=== PATIENT | male | born 1965 | race Caucasian/White ===

== ENCOUNTER → 2025-01-26 | Outpatient (CLI) | payer OTHER, SELFPAY ==
[2025-01-26 18:27] LABS: Hematocrit 44.5 % (40-54); Hemoglobin 15.5 g/dL (13.0-16.5); Immature Granulocytes Count 0.010 X10^3/uL (0.0-0.0); Mean Corp Hgb Conc 34.8 g/dL (32-36); Mean Corpuscular Volume 91.2 fL (80-94); Mean Platelet Vol. 10.2 fl (6.2-12.0); NRBC Flagged by Analyzer 0 % (0-5); Platelet Count 239 K/mm3 (150-450); RBC Distribution Width CV 12.4 % (11.6-14.6); RBC Distribution Width SD 41.1 fl (35.1-43.9); Red Blood Count 4.88 M/mm3 (4.6-6.2); White Blood Count 6.3 K/mm3 (4.4-11.0)
[2025-01-26 18:32] LABS: AST(SGOT) 24 U/L (<=37); Alanine Aminotransfer ALT/SGPT 16 U/L (<=46); Albumin, Serum 4.2 g/dL (3.5-5.0); Alkaline Phosphatase 59 U/L (40-129); Anion Gap 13 (5-15); BUN 14 mg/dL (4-19); BUN/Creat Ratio 18.1 RATIO (10-20); Calcium,Total 9.4 mg/dL (7.6-11.0); Carbon Dioxide 22.8 mmol/L (21.0-32.0); Chloride 106 mmol/L (98-108); Cholesterol 147 mg/dL (<=200); Globulin 2.3 g/dL (2.2-4.2); Glucose 104 mg/dL (70-99); Low Density Lipoprotein Calc. 58 mg/dL; Potassium 3.8 mmol/L (3.3-5.1); Triglycerides 223 mg/dL; Very Low Density Lipoprotein 45 mg/dL (5-40); cholesterol:hdl ratio screen 3.30
[2025-01-26 18:43] LABS: PSA,Total- Diagnostic 1.91 ng/mL (0.00-4.00); Vitamin B12 514 pg/mL (180-914); Vitamin D,25 Hydroxy 33.7 ng/mL (30-100)
== END | disposition home or self-care (01) ==
LOC: MTLAB 16:40
PROVIDERS: PCP Nurse Practitioner Family; Referring Provider Nurse Practitioner Family; Visit Provider Nurse Practitioner Family
DX: Z00.01 Encounter for general adult medical examination with abnormal findings (principal); R53.83 Other fatigue; Z83.49 Family history of other endocrine, nutritional and metabolic diseases
CPT/HCPCS: 36415; 80053; 80061; 82306; 82607; 84153; 84439; 84443; 85025

== ENCOUNTER → 2025-03-20 | Outpatient (CLI) | payer OTHER, SELFPAY ==
--- NOTE | 2025-03-19 15:00 | RAD_ITS ---
EXAM: XR Orbits Foreign Body CLINICAL INDICATION: MRI FOREIGN BODY CLEARANCE TECHNIQUE: Frontal view(s) of the orbits. COMPARISON: No relevant prior studies available. FINDINGS: BONES/JOINTS: Unremarkable. No acute fracture. SINUSES: Unremarkable. No air-fluid levels. SOFT TISSUES: Unremarkable. No radiopaque foreign body. RAD/Orbits for Foreign Body IMPRESSION: Normal orbital x-rays. No radiopaque foreign body in either orbit. Reading Location: [id number]
--- OUTSIDE RECORDS SUMMARY | 2025-03-20 07:24 | XMS RPT_ITS | CCD ---
Author Organization [facility] Care Team Providers Care Training And Development Coordinator Name Role Phone Bar Fink MD Primary Care Provider EMMA SEYMOUR Attending Unavailable BAR FINK Primary Care Unavailable Han RIVER TESTER-C, Maria L Primary Care Provider [phone] Han RIVER TESTER-C, Maria L Attending Provider Han RIVER TESTER-C, Maria L Referring Provider Ronal RIVER TESTER-C, Sandra Attending Provider [phone] Ranjan MONDRAGON, Dr. Valladares Attending Provider Blaine Woodruff Attending Unavailable Han, Maria L Primary Care Unavailable Sandra Villeda Attending Unavailable Sandra Villeda Referring Unavailable Han, Maria L Primary Care Unavailable Han, Maria L Primary Care Unavailable Hna, Maria L Attending Unavailable Han, Maria L Referring Unavailable Han, Maria L Referring Unavailable Sandra Villeda Attending Unavailable Han, Maria L Primary Care Unavailable Allergies Allergy Classification Reported Allergen(s) Allergy Type Date of Onset Reaction(s) Facility (2 sources) buPROPion; Translations: [BUPROPION] Drug Allergy 09-01-2019 Other: See Comments [facility] Work Phone: Medications Current Medications Medication Drug Class(es) Dates Sig (Normalized) Sig (Original) [place] (Nk) (2 sources) Start: 03-05-2025 [place] (Nk) A ctive March 05, 2025 12:00am Completed/Discontinued Medications Medication Drug Class(es) Dates Sig (Normalized) Sig (Original) acetaminophen 325 mg / oxyCODONE hydrochloride 5 mg oral tablet (3 sources) Opioid Agonist Start: 10-24-2013 End: 03-05-2025 Oxycodone-Acetami nophen 1 TABLET tablet Discontinued 1 - 2 {tbl} PO EVERY 4 HOURS NEEDED as needed for Pain October 24, 2013 12:00am March 05, 2025 1:04pm amLODIPine 2.5 mg oral tablet (1 source) Dihydropyridine Calcium Channel Kemi Start: 01-03-2021 take 1 tablet by mouth once daily amLODIPine (NORVASC) 2.5 mg tablet Take 1 tablet by mouth once daily. 30 tablet 11 01/03/2021 Active Comment on above: Take 1 tablet by carley th once daily. tamsulosin hydrochloride 0.4 mg oral capsule (3 sources) alpha-Adrenergic Kemi Start: 10-24-2013 End: 03-05-2025 take 1 capsule by mouth once daily Tamsulosin 0.4 MG capsule Discontinued 0.4 mg PO DAILY 14 October 24, 2013 12:00am March 05, 2025 1:04pm Problems Active Problems Problem Classification Problem Date Documented Date Episodic/Chronic Other circulatory disease (1 source) Elevated blood-pressure reading without diagnosis of hypertension; Translations: [Elevated blood-pressure reading, without diagnosis of hypertension] Episodic Other connective tissue disease (2 sources) History of cervical spine fusion; Translations: [Arthrodesis status] 03-05-2025 Episodic Other nervous system disorders (1 source) Disease of spinal cord, unspecified; Translations: [Disease of spinal cord, unspecified] Onset: 03-17-2025 Chronic Residual codes; unclassified (2 sources) History of surgical procedure on cervical spine; Translations: [Other specified postprocedural states] 03-05-2025 Episodic Spondylosis; intervertebral disc disorders; other back problems (1 source) Dorsalgia, unspecified; Translations: [Dorsalgia, unspecified] Onset: 03-05-2025 Episodic Substance-related disorders (1 source) Smoker; Translations: [Nicotine dependence, unspecified, uncomplicated] Chronic Past or Other Problems Problem Classification Problem Date Documented Da te Episodic/Chronic Residual codes; unclassified (1 source) Tobacco user; Translations: [Tobacco use] Onset: 05-10-2014 05-10-2014 Episodic Results Test Name Value Interpretation Reference Range Facility L/S Spine Min 4 Viewson 08- L/S Spine Min 4 Views [facility] Imaging Services [address] [place] [address] L/S Spine Min 4 Views MR#: [id number] Acct: [id number] Name: TORREY FERGUSON Rep #: [id number] : 1965 M 59 From: Catracho mccarthy MD PCP: DARRELL Rodriguez Status: DEP AMB Study: L/S Spine Min 4 Views Date of Exam: 03/05/25 Exam# [id number] Ordering Dr: Lorena Gorman PROCEDURE: L/S SPINE MIN 4 VIEWS 03/05/2025 REASON FOR EXAM: BACK PAIN TECHNIQUE: L/S SPINE MIN 4 VIEWS COMPARISON: None FINDINGS: Curvature: Levoconvex scoliosis. Multilevel disc space narrowing and spondylosis. Facet joint osteoarthritis. RAD/L/S Spine Min 4 Views IMPRESSION: Levoconvex scoliosis. Multilevel disc space narrowing and spondylosis. Facet joint osteoarthritis. Reading Location: [facility] CC: DARRELL Short; VALENTINE Urias Snow Blower: Signed Normal [facility] Orthopedic Visit Reporton Orthopedic Visit Report [facility] [address] [place] [address] OFFICE VISIT Date of Service: 03/05/25 MR#: [id number] Acct: [id number] Name: TORREY FERGUSON Rep #: [id number] : 1965 Provider: DARRELL lowe Age/Sex: 59/M Location: [facility] Status: Signed Intake Vital Signs 10/24/13 12:57 03/05/25 13:03 Height 5 ft 7 in 5 ft 7 in Weight: 121 lb BMI 18.9 Intake Visit Reasons: LUMBAR SPINE Chief Complaint: lumabr spine Accompanied by: Self Is patient in pain?: Yes (lumbar spine) Pain scale (1-10): 5 Allergies No Known Allergies Allergy (Verified 03/05/25 13:03) Medications ???Medication ???Instructions ???Recorded ???Confirmed ???Type cyclobenzaprine 10 mg tablet 5 - 10 mg (0.5 - 1 x 10 mg) PO HS 03/05/25 03/05/25 Rx PRN muscle spasm or pain #30 tabs PFSH Medical History (Updated 03/05/25 @ 16:20 by DARRELL Perera) Skin cancer Surgical History H/O cervical spine surgery Hx of fusion of cervical spine Social History Smoking Status: Current every day smoker HPI LUMBAR SPINE Details: This documentation accurately reflects the service provided and the decisions made by me, DARRELL Perera 03/05/25 1300. Part of today???s visit was documented by Myrna Billingsley RN, acting as scribe. TORREY FERGUSON is a 59 year old M here today for lumbar spine pain. The low back pain is worse on the right side. The pain is constant and get worse throughout the day. The pain does occasionally radiate into his right buttocks. The pain is worse at night when he lays down and he has difficulty getting out of bed at times due to the pain. He can walk long distances, walking seems to help the pain. 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 He previously had two cervical surgeries, one where a plate was placed he does not recall exact details. The other was for a cervical fusion, these were both done in 1999 and 2000. He has not seen pain management. Agree with above. Hx scoliosis since childhood, last seen yrs ago (>10 yrs) Was told would eventually need surgery 20+ yrs ago of the lumbar spine Constant ache, very stiff in mornings. Stiff and annoying by end of work day. Occasional Ibuprofen, rarely takes edge off. Multiple topicals attempted with minimal short term relief, has tried multiple oral OTC, prescription NSAIDs, Tylenol with minimal improvement of symptoms. Patient does perform 1-2 times daily stretching and heat for sx control. Symptoms have been worsening most notably over the last 1 to 2 years. Patient states he does not acknowledge the pain and keeps doing what he has to do. Denies any loss of bowel or bladder control, no saddle anesthesia, no paresthesias reported. Denies any recent stumbling gait, trips or falls. ROS Const All systems reviewed are unremarkable except as noted in H and other (A O x 3, no apparent distress. No recent illness.) ENT Denies dizziness Card Denies chest pain, Denies dyspnea, Denies edema and Reports other (No palpitations) Resp Denies cough, Denies dyspnea and Reports other (No recent URI) GI Reports system reviewed and no additional complaints, except as documented, Denies nausea and Denies vomiting Musc Reports as per HPI, Reports abnormal gait, Reports back pain and Reports limited range of motion Neuro Yes abnormal gait and No dizziness Psych Reports system reviewed and no additional complaints, except as documented Connor/Lymph Denies easy bleeding and Denies easy bruising Ortho Exam General General: Yes no acute distress and Yes well groomed Neurologic: Yes alert and Yes oriented x3 Psychologic: Yes reasonable and appropriate Spine SPINE TESTING CERVICAL THORACIC LUMBAR Musculoskeletal Strength 0=absent - 5=normal Details: Skin is pink, warm, dry and intact. There is no bruising or swelling present. There is no pain with palpation over the vertebrae, positive tenderness and muscle tightness over the right mid to lower lumbar paraspinal region. Minimal aggravation with palpation of the SI joint. Range of motion of low back full with flexion and extension, limited with bilateral rotation and lateral leans. Positive straight leg raise Positive visible scoliosis formation with ambulation and on exam. Right leg strength mildly weaker than left. There is noted atrophy of the right leg compared to left leg. Knee and ankle DTRs within normal limits Distal motor or sensory intact with brisk cap refill at 2 seconds Supplemental Info Independent review of lumbar spine x-rays completed during today's visit. There is advanced scoliosis of the lumbar sp (more content not included)... Normal [facility] Absolute lymphocyte countOrd ered By: Maria L Short on 01-26-2025 Lymphocytes Auto (Unsp spec) [#/Vol] 2.01 10*3/uL 0.83-4.51 [facility] Absolute neutrophil countOrd ered By: Maria L Short on 01-26-2025 Neutrophils (Bld) [#/Vol] 3.5 10*3/uL 2.0-7.7 [facility] Anion gap in Serum or Plasma Ordered By: Maria L Short on 01-26-2025 Anion gap [Moles/Vol] 13 mmol/L 5-15 [facility] Automated lymphocyte count a s percentage of total leukocytesOrdered By: Maria Lnohemi Short on 01-26-2025 Lymphocytes/100 WBC Auto (Unsp spec) 31.9 % 19-41 [facility] BUN/creatinine ratioOrdered By: Maria Lnohemi Short on 01-26-2025 Urea nitrogen/Creatinine [Mass ratio] 18.1 mg/mg 10-20 [facility] Basophil percentageOrdered B y: Maria L Short on 01-26-2025 Basophils/100 WBC (Bld) 0.6 % 0-1 [facility] Bilirubin, totalOrdered By: [facility] on 01-26-2025 Bilirubin [Mass/Vol] 0.86 mg/dL 0.00-1.30 [facility] CBC W/Diff, Automatedon Absolute Lymph 2.01 X10 3/uL Normal 0.83-4.51 [facility] Comment on above: Performed By: #### L 503.0106, L500.4100, L501.9520, L506.1001, L506.0400, L500.4050, L100.0100, L501.9940 #### [facility] [address] [place], [address] Absolute Neut 3.5 X10 3/uL Normal 2.0-7.7 [facility] Comment on above: Performed By: #### L 503.0106, L500.4100, L501.9520, L506.1001, L506.0400, L500.4050, L100.0100, L501.9940 #### [facility] [address] [place], [address] Basophils/100 WBC (Bld) 0.6 % Normal 0-1 [facility] Comment on above: Performed By: #### L 503.0106, L500.4100, L501.9520, L506.1001, L506.0400, L500.4050, L100.0100, L501.9940 #### [facility] [address] [place], [address] Eosinophils/100 WBC (Bld) 3.0 % Normal 0-5 [facility] Comment on above: Performed By: #### L 503.0106, L500.4100, L501.9520, L506.1001, L506.0400, L500.4050, L100.0100, L501.9940 #### [facility] [address] [place], [address] Erythrocyte distribution width (RBC) [Ratio] 12.4 % Normal 11.6-14.6 [facility] Comment on above: Performed By: #### L 503.0106, L500.4100, L501.9520, L506.1001, L506.0400, L500.4050, L100.0100, L501.9940 #### [facility] [address] [place], [address] Hematocrit (Bld) [Volume fraction] 44.5 % Normal 40-54 [facility] Comment on above: Performed By: #### L 503.0106, L500.4100, L501.9520, L506.1001, L506.0400, L500.4050, L100.0100, L501.9940 #### [facility] [address] [facility], [address] Hemoglobin (Bld) [Mass/Vol] 15.5 g/dL Normal 13.0-16.5 [facility] Comment on above: Performed By: #### L 503.0106, L500.4100, L501.9520, L506.1001, L506.0400, L500.4050, L100.0100, L501.9940 #### [facility] [address] [place], [address] IG% 0.200 Normal 0.0-0.9 [facility] Comment on above: Result Comment: IG% - Immature Granulocytes (promyelocytes, myelocytes and metamyelocytes) > 1% indicates that a LEFT SHIFT is Present. Performed By: #### L 503.0106, L500.4100, L501.9520, L506.1001, L506.0400, L500.4050, L100.0100, L501.9940 #### [facility] [address] [place], [address] Lymphocytes/100 WBC (Bld) 31.9 % Normal 19-41 [facility] Comment on above: Performed By: #### L 503.0106, L500.4100, L501.9520, L506.1001, L506.0400, L500.4050, L100.0100, L501.9940 #### [facility] [address] [facility], [address] MCH (RBC) [Entitic mass] 31.8 pg Normal 27.0-32.0 [facility] Comment on above: Performed By: #### L 503.0106, L500.4100, L501.9520, L506.1001, L506.0400, L500.4050, L100.0100, L501.9940 #### [facility] [address] [facility], [address] MCHC (RBC) [Mass/Vol] 34.8 g/dL Normal 32-36 [facility] Comment on above: Performed By: #### L 503.0106, L500.4100, L501.9520, L506.1001, L506.0400, L500.4050, L100.0100, L501.9940 #### [facility] [address] [facility] [place], [address] MCV (RBC) [Entitic vol] 91.2 fL Normal 80-94 [facility] Comment on above: Performed By: #### L 503.0106, L500.4100, L501.9520, L506.1001, L506.0400, L500.4050, L100.0100, L501.9940 #### [facility] [address] [place], [address] Monocytes/100 WBC (Bld) 9.0 % Normal 0-10 [facility] Comment on above: Performed By: #### L 503.0106, L500.4100, L501.9520, L506.1001, L506.0400, L500.4050, L100.0100, L501.9940 #### [facility] [address] [place], [address] Neutrophils/100 WBC (Bld) 55.3 % Normal 47-70 [facility] Comment on above: Performed By: #### L 503.0106, L500.4100, L501.9520, L506.1001, L506.0400, L500.4050, L100.0100, L501.9940 #### [facility] [address] [place], [address] Nucleated RBC (Bld) [#/Vol] 0 10*3/uL Normal 0-5 [facility] Comment on above: Performed By: #### L 503.0106, L500.4100, L501.9520, L506.1001, L506.0400, L500.4050, L100.0100, L501.9940 #### [facility] [address] [place], [address] Platelet mean volume (Bld) [Entitic vol] 10.2 fL Normal 6.2-12.0 [facility] Comment on above: Performed By: #### L 503.0106, L500.4100, L501.9520, L506.1001, L506.0400, L500.4050, L100.0100, L501.9940 #### [facility] [address] [place], [address] Platelets (Bld) [#/Vol] 239 10*3/uL Normal 150-450 [facility] Comment on above: Performed By: #### L 503.0106, L500.4100, L501.9520, L506.1001, L506.0400, L500.4050, L100.0100, L501.9940 #### [facility] [address] [place], [address] RBC (Bld) [#/Vol] 4.88 10*6/uL Normal 4.6-6.2 [facility] [place] [facility] Comment on above: Performed By: #### L 503.0106, L500.4100, L501.9520, L506.1001, L506.0400, L500.4050, L100.0100, L501.9940 #### [facility] [address] [place], [address] RDW SD 41.1 fl Normal 35.1-43.9 [facility] Comment on above: Performed By: #### L 503.0106, L500.4100, L501.9520, L506.1001, L506.0400, L500.4050, L100.0100, L501.9940 #### [facility] [address] [place], [address] WBC (Bld) [#/Vol] 6.3 10*3/uL Normal 4.4-11.0 [facility] Comment on above: Performed By: #### L 503.0106, L500.4100, L501.9520, L506.1001, L506.0400, L500.4050, L100.0100, L501.9940 #### [facility] [address] [place], [address] Calculated very low density lipoprotein (VLDL) cholesterol measurementOrdered By: Maria L Short on 01-26-2025 Calculated very low density lipoprotein (VLDL) cholesterol measurement 45 mg/dL High 5-40 [facility] Carbon dioxide, total [Moles /volume] in Central venous bloodOrdered By: Maria L Short on 01-26-2025 CO2 [Moles/Vol] 22.8 mmol/L 21.0-32.0 [facility] Chloride assayOrdered By: Ra izabella Short on 01-26-2025 Chloride [Moles/Vol] 106 mmol/L 98-108 [facility] Comprehensive Metabolic Prof ilon 01-26-2025 Albumin [Mass/Vol] 4.2 g/dL Normal 3.5-5.0 [facility] Comment on above: Performed By: #### L 503.0106, L500.4100, L501.9520, L506.1001, L506.0400, L500.4050, L100.0100, L501.9940 #### [facility] [address] [place], [address] Albumin/Globulin [Mass ratio] 1.8 {ratio} Normal 0.9-2.4 [facility] Comment on above: Performed By: #### L 503.0106, L500.4100, L501.9520, L506.1001, L506.0400, L500.4050, L100.0100, L501.9940 #### [facility] [address] [place], [address] ALK PHOS 59 U/L Normal 40-129 [facility] Comment on above: Performed By: #### L 503.0106, L500.4100, L501.9520, L506.1001, L506.0400, L500.4050, L100.0100, L501.9940 #### [facility] [address] [place], [address] ALT [Catalytic activity/Vol] 16 U/L Normal <=46 [facility] Comment on above: Performed By: #### L 503.0106, L500.4100, L501.9520, L506.1001, L506.0400, L500.4050, L100.0100, L501.9940 #### [facility] [address] [place], [address] AST [Catalytic activity/Vol] 24 U/L Normal <=37 [facility] Comment on above: Performed By: #### L 503.0106, L500.4100, L501.9520, L506.1001, L506.0400, L500.4050, L100.0100, L501.9940 #### [facility] [address] [place], [address] Bilirubin [Mass/Vol] 0.86 mg/dL Normal 0.00-1.30 [facility] Comment on above: Performed By: #### L 503.0106, L500.4100, L501.9520, L506.1001, L506.0400, L500.4050, L100.0100, L501.9940 #### [facility] [address] [place], [address] BUN/CRE 18.1 RATIO Normal 10-20 [facility] Comment on above: Performed By: #### L 503.0106, L500.4100, L501.9520, L506.1001, L506.0400, L500.4050, L100.0100, L501.9940 #### [facility] [address] [place], [address] Calcium [Mass/Vol] 9.4 mg/dL Normal 7.6-11.0 [facility] Comment on above: Performed By: #### L 503.0106, L500.4100, L501.9520, L506.1001, L506.0400, L500.4050, L100.0100, L501.9940 #### [facility] [address] [place], [address] Chloride [Moles/Vol] 106 mmol/L Normal 98-108 [facility] Comment on above: Performed By: #### L 503.0106, L500.4100, L501.9520, L506.1001, L506.0400, L500.4050, L100.0100, L501.9940 #### [facility] [address] [place], [address] CO2 [Moles/Vol] 22.8 mmol/L Normal 21.0-32.0 [facility] Comment on above: Performed By: #### L 503.0106, L500.4100, L501.9520, L506.1001, L506.0400, L500.4050, L100.0100, L501.9940 #### [facility] [address] [place], [place], [id number] Creatinine [Mass/Vol] 0.79 mg/dL Normal 0.70-1.20 [facility] Comment on above: Performed By: #### L 503.0106, L500.4100, L501.9520, L506.1001, L506.0400, L500.4050, L100.0100, L501.9940 #### [facility] [address] [place], [address] GAP 13 Normal 5-15 [facility] Comment on above: Performed By: #### L 503.0106, L500.4100, L501.9520, L506.1001, L506.0400, L500.4050, L100.0100, L501.9940 #### [facility] [address] [place], [place], [id number] ([address] GFR/1.73 sq M.predicted among non-blacks MDRD (S/P/Bld) [Vol rate/Area] 102 mL/min/{1.73_m2} Normal >60 [facility] Comment on above: Result Comment: mL/m in/1.73m2 CKD-EPI Creatinine Equation (2020) Performed By: #### L 503.0106, L500.4100, L501.9520, L506.1001, L506.0400, L500.4050, L100.0100, L501.9940 #### [facility] [address] [place], [address] Globulin (S) [Mass/Vol] 2.3 g/dL Normal 2.2-4.2 [facility] Comment on above: Performed By: #### L 503.0106, L500.4100, L501.9520, L506.1001, L506.0400, L500.4050, L100.0100, L501.9940 #### [facility] [address] [place], [address] Glucose [Mass/Vol] 104 mg/dL High 70-99 [facility] Comment on above: Performed By: #### L 503.0106, L500.4100, L501.9520, L506.1001, L506.0400, L500.4050, L100.0100, L501.9940 #### [facility] [address] [place], [address] Potassium [Moles/Vol] 3.8 mmol/L Normal 3.3-5.1 [facility] Comment on above: Performed By: #### L 503.0106, L500.4100, L501.9520, L506.1001, L506.0400, L500.4050, L100.0100, L501.9940 #### [facility] [address] [place], [address] Sodium [Moles/Vol] 141 mmol/L Normal 133-145 [facility] Comment on above: Performed By: #### L 503.0106, L500.4100, L501.9520, L506.1001, L506.0400, L500.4050, L100.0100, L501.9940 #### [facility] [address] [place], [place], [address] T PROT 6.5 g/dL Normal 5.9-8.4 [facility] Comment on above: Performed By: #### L 503.0106, L500.4100, L501.9520, L506.1001, L506.0400, L500.4050, L100.0100, L501.9940 #### [facility] [address] [place], [address] Urea nitrogen [Mass/Vol] 14 mg/dL Normal 4-19 [facility] Comment on above: Performed By: #### L 503.0106, L500.4100, L501.9520, L506.1001, L506.0400, L500.4050, L100.0100, L501.9940 #### [facility] [address] [facility], [address] Eosinophil percentageOrdered By: Maria L Short on 01-26-2025 Eosinophils/100 WBC (Bld) 3.0 % 0-5 [facility] Erythrocyte distribution wid th ratioOrdered By: [place] Han on 01-26-2025 Erythrocyte distribution width (RBC) [Ratio] 12.4 % 11.6-14.6 [facility] Erythrocyte distribution wid th standard deviationOrdered By: [place] Han on 01-26-2025 Erythrocyte distribution width (RBC) [Ratio] 41.1 fl 35.1-43.9 [facility] Glomerular filtration rate ( GFR) estimation/1.73 sq m using serum, plasma, or whole bOrdered By: Maria L Short on 01-26-2025 GFR/1.73 sq M.predicted among non-blacks MDRD (S/P/Bld) [Vol rate/Area] 102 mL/min/{1.73_m2} >60 [facility] Comment on above: mL/min/1.73m2 CKD-EP I Creatinine Equation (2020) Hematocrit Auto (Bld) [Volum e fraction]Ordered By: Maria L Short on 01-26-2025 Hematocrit (Bld) [Volume fraction] 44.5 % 40-54 [facility] Hemoglobin measurementOrdere d By: Maria L Short on 01-26-2025 Hemoglobin (Bld) [Mass/Vol] 15.5 g/dL 13.0-16.5 [facility] Immature granulocytes/100 WB C Auto (Bld)Ordered By: Maria L Short on 01-26-2025 Immature granulocytes/100 WBC (Bld) 0.200 % 0.0-0.9 [facility] Comment on above: IG% - Immature Granu locytes (promyelocytes, myelocytes and metamyelocytes) > 1% indicates that a LEFT SHIFT is Present. LDL calc ser/plasOrdered By: Maria L Short on 01-26-2025 Cholesterol in LDL [Mass/Vol] 58 mg/dL [facility] Comment on above: Hxwrdbshot=958-189 m g/dL & Higher Gxif=541 mg/dL or greater Laboratory - Chemistry and C hemistry - challengeOrdered By: Maria L Short on 01-26-2025 AST [Catalytic activity/Vol] 24 U/L <38 [facility] Lipid Profileon 01-26-2025 CHOL:HDL 3.30 Normal [facility] Comment on above: Performed By: #### L 503.0106, L500.4100, L501.9520, L506.1001, L506.0400, L500.4050, L100.0100, L501.9940 #### [facility] [address] [place], [place], [id number] Cholesterol [Mass/Vol] 147 mg/dL Normal <=200 [facility] [facility] Comment on above: Result Comment: Chol esterol level, Desirable <200 mg/dL Borderline high cholesterol 200-239 mg/dL High cholesterol >=240 mg/dL Recommendations of the NCEP Adult Treatment Panel for the following risk-cutoff thresholds for the [place] population. Performed By: #### L 503.0106, L500.4100, L501.9520, L506.1001, L506.0400, L500.4050, L100.0100, L501.9940 #### [facility] [address] [place], [address] Cholesterol in HDL [Mass/Vol] 45 mg/dL Normal [facility] Comment on above: Result Comment: Iman onal Cholesterol Education Program (NCEP) guidelines: <40 mg/dL: Low HDL-cholesterol (major risk factor for CHD) >= 60 mg/dL: High HDL-cholesterol (negative risk factor for CHD) HDL-cholesterol is affected by a number of factors, e.g. smoking, exercise, hormones, sex and age. Performed By: #### L 503.0106, L500.4100, L501.9520, L506.1001, L506.0400, L500.4050, L100.0100, L501.9940 #### [facility] [address] [place], [address] Cholesterol in LDL [Mass/Vol] 58 mg/dL Normal [facility] Comment on above: Result Comment: Bord bovyzl=920-817 mg/dL Higher Ydck=377 mg/dL or greater Performed By: #### L 503.0106, L500.4100, L501.9520, L506.1001, L506.0400, L500.4050, L100.0100, L501.9940 #### [facility] [address] [place], [address] Cholesterol in VLDL [Mass/Vol] 45 mg/dL High 5-40 [facility] Comment on above: Performed By: #### L 503.0106, L500.4100, L501.9520, L506.1001, L506.0400, L500.4050, L100.0100, L501.9940 #### [facility] [address] [place], [address] Triglyceride [Mass/Vol] 223 mg/dL High [facility] Comment on above: Result Comment: The drugs N-Acetylcysteine and Metamizole may falsely depress this assay. Normal range: <150 mg/dL Borderline High: 150-199 mg/dL High: 200-499 mg/dL Very High: >500 mg/dL Performed By: #### L 503.0106, L500.4100, L501.9520, L506.1001, L506.0400, L500.4050, L100.0100, L501.9940 #### [facility] [address] [place], [address] MCV (mean corpuscular volume ) determinationOrdered By: [place] Han on 01-26-2025 MCV (RBC) [Entitic vol] 91.2 fL 80-94 [facility] Mean corpuscular hemoglobin (MCH) determinationOrdered By: [facility] 01-26-2025 MCH (RBC) [Entitic mass] 31.8 pg 27.0-32.0 [facility] Mean corpuscular hemoglobin concentration (MCHC) determinationOrdered By: [facility] on 01-26-2025 MCHC (RBC) [Mass/Vol] 34.8 g/dL 32-36 [facility] Mean platelet volume determi nationOrdered By: [facility] on 01-26-2025 Platelet mean volume (Bld) [Entitic vol] 10.2 fL 6.2-12.0 [facility] Monocyte percentageOrdered B y: [facility] on 01-26-2025 Monocytes/100 WBC (Bld) 9.0 % 0-10 [facility] Neutrophil percentageOrdered By: [facility] on 01-26-2025 Neutrophils/100 WBC (Bld) 55.3 % 47-70 [facility] Nucleated red blood cell per centageOrdered By: [facility] on 01-26-2025 Nucleated RBC/100 WBC (Bld) [Ratio] 0 % 0-5 [facility] PSA,Total- Diagnosticon 07-0 PSA, DIAGNOSTIC 1.91 ng/mL Normal 0.00-4.00 [facility] Comment on above: Result Comment: This test was performed using the [employer] tPSA method. Measured values of a patient??sample can vary depending on the testing procedure used. PSA values determined on patient samples by different testing procedures cannot be used interchangeably. If there is a change in PSA assays while monitoring therapy, sequential testing should be performed to confirm baseline values. Performed By: #### L 503.0106, L500.4100, L501.9520, L506.1001, L506.0400, L500.4050, L100.0100, L501.9940 #### [facility] [place], [address] Platelet countOrdered By: Ra izabella Short on 01-26-2025 Platelets (Bld) [#/Vol] 239 10*3/uL 150-450 [facility] Potassium measurement (mass/ volume)Ordered By: Maria L Short on 01-26-2025 Potassium (Unsp spec) [Mass/Vol] 3.8 mmol/L 3.3-5.1 [facility] RBC Auto (Bld) [#/Vol]Ordere d By: Maria L Short on 01-26-2025 RBC (Bld) [#/Vol] 4.88 10*6/uL 4.6-6.2 [facility] Screening total cholesterol/ high density lipoprotein (HDL) cholesterol ratioOrdered By: Maria L Short on 01-26-2025 Cholesterol.total/Cholest elizabeth in HDL [Mass ratio] 3.30 {ratio} [facility] Serum creatinine measurement (mass/volume)Ordered By: Maria L Short on 01-26-2025 Creatinine [Mass/Vol] 0.79 mg/dL 0.70-1.20 [facility] Serum globulin measurementOr dered By: Maria L Short on 01-26-2025 Globulin (S) [Mass/Vol] 2.3 g/dL 2.2-4.2 [facility] Serum glucose measurement (m ass/volume)Ordered By: Maria L Short on 01-26-2025 Glucose [Mass/Vol] 104 mg/dL High 70-99 [facility] Serum or plasma alanine bowling otransferase (ALT) measurementOrdered By: Maria L Short on 01-26-2025 ALT [Catalytic activity/Vol] 16 U/L <47 [facility] Serum or plasma albumin susan urement (mass/volume)Ordered By: Maria L Short on 01-26-2025 Albumin [Mass/Vol] 4.2 g/dL 3.5-5.0 [facility] Serum or plasma albumin/glob ulin mass ratioOrdered By: Maria L Short on 01-26-2025 Albumin/Globulin [Mass ratio] 1.8 {ratio} 0.9-2.4 [facility] Serum or plasma alkaline wesley sphatase measurementOrdered By: Maria L Short on 01-26-2025 ALP [Catalytic activity/Vol] 59 U/L 40-129 [facility] Serum or plasma calcium susan urement (mass/volume)Ordered By: Maria L Short on 01-26-2025 Calcium [Mass/Vol] 9.4 mg/dL 7.6-11.0 [facility] Serum or plasma cholesterol in HDL measurement (mass/volume)Ordered By: Maria L Short on 01-26-2025 Cholesterol in HDL [Mass/Vol] 45 mg/dL >40 [facility] Comment on above: National Cholesterol Education Program (NCEP) guidelines:<40 mg/dL: Low HDL-cholesterol (major risk factor for CHD)>= 60 mg/dL: High HDL-cholesterol (negative risk factor for CHD)HDL-cholesterol is affected by a number of factors, e.g. smoking, exercise, hormones, sex and age. Serum or plasma cholesterol measurement (mass/volume)Ordered By: Maria L Short on 01-26-2025 Cholesterol [Mass/Vol] 147 mg/dL <201 [facility] Comment on above: Cholesterol level, D esirable <200 mg/dLBorderline high cholesterol 200-239 mg/dLHigh cholesterol >=240 mg/dLRecommendations of the NCEP Adult Treatment Panel for the following risk-cutoff thresholds for the [place] population. Serum or plasma urea nitroge n measurement (mass/volume)Ordered By: Maria L Short on 01-26-2025 Urea nitrogen [Mass/Vol] 14 mg/dL 4-19 [facility] Sodium levelOrdered By: Jill Short on 01-26-2025 Sodium [Moles/Vol] 141 mmol/L 133-145 [facility] T4 Free Directon 01-26-2025 T4 FREE DIRECT 1.10 ng/dL Normal 0.76-1.46 [facility] Comment on above: Performed By: #### L 503.0106, L500.4100, L501.9520, L506.1001, L506.0400, L500.4050, L100.0100, L501.9940 #### [facility] [address] [place], [place], [id number] T4 freeOrdered By: Maria L brown on 01-26-2025 Free T4 [Mass/Vol] 1.10 ng/dL 0.76-1.46 [facility] TSH DL <= 0.005 mIU/L QnOrde red By: Maria L Short on 01-26-2025 TSH Qn 1.090 uIU/mL 0.300-4.200 [facility] Thyroid Stim Hormone (TSH)on 01-26-2025 TSH 1.090 uIU/mL Normal 0.300-4.200 [facility] Comment on above: Performed By: #### L 503.0106, L500.4100, L501.9520, L506.1001, L506.0400, L500.4050, L100.0100, L501.9940 #### [facility] [address] [place], [place], [id number] Total proteinOrdered By: Pascual Short on 01-26-2025 Protein [Mass/Vol] 6.5 g/dL 5.9-8.4 [facility] Triglycerides measurementOrd ered By: Maria L Short on 01-26-2025 Triglyceride [Mass/Vol] 223 mg/dL High <199 [facility] Comment on above: The drugs N-Acetylcy steine and Metamizole may falsely depress this assay. Normal range: <150 mg/dLBorderline High: 150-199 mg/dLHigh: 200-499 mg/dLVery High: >500 mg/dL Vitamin B12on 01-26-2025 Cobalamin (Vitamin B12) [Mass/Vol] 514 pg/mL Normal 180-914 [facility] Comment on above: Performed By: #### L 503.0106, L500.4100, L501.9520, L506.1001, L506.0400, L500.4050, L100.0100, L501.9940 #### [facility] [address] [place], [place], [id number] Vitamin B12 ser/plasOrdered By: Maria L Short on 01-26-2025 Cobalamin (Vitamin B12) [Mass/Vol] 514 pg/mL 180-914 [facility] Vitamin D,25 Hydroxyon 01-26 Vitamin D 25-OH 33.7 ng/mL Normal 30-100 [facility] Comment on above: Result Comment: Laurie min D Status Deficiency: <20 ng/mL (50nmol/L) Insufficiency: 20-30 ng/mL (50-75 nmol/L) Sufficiency: 30-100 ng/mL (75-250 nmol/L) Toxicity: >100 ng/mL (>250 nmol/L) Performed By: #### L 503.0106, L500.4100, L501.9520, L506.1001, L506.0400, L500.4050, L100.0100, L501.9940 #### [facility] [address] [place], [place], [id number] White blood cell (WBC) count Ordered By: Maria L Short on 01-26-2025 WBC (Bld) [#/Vol] 6.3 10*3/uL 4.4-11.0 [facility] CNOVon 07-11-2023 CNOV Office Visit (INTMWS) ---- TORREY FERGUSON ([id number]) 1965 M Date Time Provider Department 07/11/23 7:00 AM EMMA SEYMOUR INTMWS During your visit today, we recorded the following information about you: Pulse Respiration Blood pressure Weight 60/minute 16/minute 136/86 56.2 kg Height 1.676 m Emma Seymour, BRIDGE MANAGER.PIPE AND TEST SUPERVISOR 07/11/2023 7:39 AM Signed SUBJECTIVE: Hepatitis B Vaccine(1 of 3 - 3-dose series) Never done Colorectal Cancer Screening Never done Shingrix Vaccine(1 of 2) Never done Pneumococcal Vaccine(2 - PCV) due on 05/10/2015 Depression Assessment Never done HPI Torrey Ferguson is a 58 year old male.PMH significant for ACTIVE PROBLEM LIST Tobacco Abuse History of cervical fusion, [address] [facility] [address] [place]. Subsequent titanium clips 2001. Congenital scoliosis lumbar to cervical. Imaging at [facility]. Presents for routine follow up visit. Notes he is in his usual state of health. He is active, works with concrete. Weight is stable. No new problems since last seen. Last seen by Bar Fink MD 08/16/2021. Seen by automatic casting machine operator , Dr Roberto. 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 Not treating blood pressure, has not previously. Smoking: tried bupropion but had adverse effect so stopped. Notes continues to smoke 1/2 pack daily HTN: Without report of headache, chest pain, palpitations, dyspnea, peripheral edema, orthopnea, fatigue, or PND. Last 3 Encounter BP Readings: Date: BP: 07/11/2023 136/86 08/16/2021 122/78 01/03/2021 130/88[trubp average[ Review of Systems Constitutional: Negative. Musculoskeletal: Positive for arthralgias and back pain. Objective BP 136/86 Pulse 60 Resp 16 Ht 167.6 cm (5' 6) Wt 56.2 kg (124 lb) BMI 20.01 kg/m? Physical Exam Vitals and nursing note reviewed. Constitutional: Appearance: Normal appearance. HENT: Head: Normocephalic and atraumatic. Eyes: Conjunctiva/sclera: Conjunctivae normal. Cardiovascular: Rate and Rhythm: Normal rate and regular rhythm. Heart sounds: Normal heart sounds. Pulmonary: Effort: Pulmonary effort is normal. Breath sounds: Normal breath sounds. Abdominal: General: Bowel sounds are normal. Palpations: Abdomen is soft. Musculoskeletal: Right lower leg: No edema. Left lower leg: No edema. Comments: S- shaped curvature of spine Skin: General: Skin is warm and dry. Neurological: General: No focal deficit present. Mental Status: He is alert. ALLERGIES Allergen Reactions Wellbutrin [Bupropi* Other: See Comments Made him feel weird amLODIPine (NORVASC) 2.5 mg tablet Take 1 tablet by mouth once daily. (Patient not taking: Reported on 08/16/2021) PAST MEDICAL HISTORY Diagnosis Date DDD (degenerative disc disease), cervical [facility] Nephrolithiasis 2014 Scoliosis, congenital Social History Tobacco Use Smoking status: Every Day Packs/day: 0.50 Years: 10.00 Additional pack years: 0.00 Total pack years: 5.00 Types: Cigarettes Smokeless tobacco: Former Quit date: 12/13/2020 Tobacco comments: Knows should quit; some days less; some smoke at work Vaping Use Vaping Use: Never used Substance Use Topics Alcohol use: No Comment: rare, occasional Drug use: No Component Latest Ref Rng AND Units 01/03/2021 Protein, Total 6.3 - 8.0 g/dL 7.1 Albumin 3.9 - 4.9 g/dL 4.5 Calcium 8.5 - 10.2 mg/dL 9.5 Bilirubin, Total 0.2 - 1.3 mg/dL 1.1 Alkaline Phosphatase 38 - 113 U/L 60 AST 14 - 40 U/L 26 Glucose 74 - 99 mg/dL 79 BUN 9 - 24 mg/dL 13 Creatinine 0.73 - 1.22 mg/dL 0.74 Sodium 136 - 144 mmol/L 138 Potassium 3.7 - 5.1 mmol/L 4.1 Chloride 97 - 105 mmol/L 101 CO2 22 - 30 mmol/L 27 Anion Gap 9 - 18 mmol/L 10 ALT 10 - 54 U/L 17 eGFR- >60 eGFR-All Other Races . >60 Total Cholesterol, Nonfasting <200 mg/dL 172 Triglycerides, Nonfasting <150 mg/dL 67 HDL Cholesterol, Nonfasting >39 mg/dL 49 LDL Cholesterol, Nonfasting <100 mg/dL 110 (H) Non HDL Cholesterol, Nonfasting <130 mg/dL 123 VLDL Cholesterol, Nonfasting <30 mg/dL 13 Total Chol/HDL Ratio, Nonfasting <5.10 mg/dL 3.51 LDL/HDL Ratio, Nonfasting <2.54 mg/dL 2.24 HIV 12 Combo (Ag/Ab) Non Reactive Non Reactive HIV-1/2 AB Test Not Indicated HIV Interpretation Negative Hep C Antibody IA Negative Negative PSA Screening 0.00 - 2.59 ng/mL 1.31 ASSESSMENT/PLAN: 1. Routine medical exam - ICD9: V70.0, ICD10: Z00.00 (primary diagnosis) - Counseled on healthy diet and regular exercise - Follow up for annual exam in one year 2. Encounter for immunization - ICD9: V03.89, ICD10: Z23 deferred to later date - ZOSTER VACCINE, RECOMBINANT (SHINGRIX) - ZOSTER VACCINE, RECOMBINANT (SHINGRIX) - PNEUMOCOCCAL VACCINE (PREVNAR 20) - HEP B VACCINE, 3-DOSE, AGE 20+ YR (ENGERIX-B, RECOMBIVAX HB) - HEP B VACCINE, 3-DOSE, AGE 20+ YR (ENGERIX-B, RECOMBIVAX HB) - HEP B VA (more content not included)... Normal [facility] Vital Signs Date Time Vital Sign Value Performing Clinician Richar gold 03-05-2025 13:03-0400 Body height 170.18 cm Maria L Short RIVER TESTER-C Work Phone: [facility] 03-05-2025 13:03-0400 Body mass index (BMI) [Ratio] 18.9 kg/m2 Maria L Short RIVER TESTER-C Work Phone: [facility] 03-05-2025 13:03-0400 Body weight 54.88 kg Maria L Short RIVER TESTER-C Work Phone: [facility] 08-16-2021 12:03-0500 Diastolic blood pressure 78 mm[Hg] Bar Fink MD Work Phone: [facility] 08-16-2021 12:03-0500 Systolic blood pressure 122 mm[Hg] Bar Fink MD Work Phone: [facility] 08-16-2021 11:23-0500 Body weight 58.06 kg Bar Fink MD Work Phone: [facility] 08-16-2021 11:23-0500 Heart rate 78 /min Bar Fink MD Work Phone: [facility] Encounters Encounter Date Encounter Type Care Provider Facility Start: 03-20-2025 ambulatory Sandra Villeda Facility :[facility] Start: 03-05-2025 End: 03-05-[address] Blaine Woodruff MD -[facility] Start: 03-05-2025 End: 03-05-2025 ambulatory Maria L Short RIVER TESTER-C Work Phone: -[facility] Start: 02-01-2025 Encounter for genera l adult medical examination with abnormal findings Maria L Short [facility] Start: 01-26-2025 End: 01-26-2025 ambulatory Maria L Short RIVER TESTER-C Work Phone: [facility] Start: 01-26-2025 End: 01-26-2025 Patient encounter procedure Maria L Short RIVER TESTER-C -[facility] Work Phone: Start: 01-26-2025 End: 01-26-2025 ambulatory Maria L Short Facility:[facility] Start: 07-11-2023 End: 07-11-2023 ambulatory [facility] Facility:[facility] Start: 08-16-2021 End: 08-16-2021 Patient encounter procedure Bar Fink MD Work Phone: [facility] [place] Comment on above: Elevated blood-press ure reading without diagnosis of hypertension (Primary Dx); Smoker Procedures Date Procedure Procedure Detail Performing Clinician Start: 01-26-2025 Assay of prostate sp ecific antigen total Maria L Short RIVER TESTER-C Work Phone: Comment on above: This test was perfor med using the [employer] tPSA method. Measured values of a patient sample can vary depending on the testing procedure used. PSA values determined on patient samples by different testing procedures cannot be used interchangeably. If there is a change in PSA assays while monitoring therapy, sequential testing should be performed to confirm baseline values. Start: 01-26-2025 Vitamin D, 25-hydrox y measurement Maria L Short RIVER TESTER-C Work Phone: Comment on above: Vitamin D StatusDefi ciency: <20 ng/mL (50nmol/L)Insufficiency: 20-30 ng/mL (50-75 nmol/L)Sufficiency: 30-100 ng/mL (75-250 nmol/L)Toxicity: >100 ng/mL (>250 nmol/L) Start: 01-03-2021 Adult depression scr eening assessment Bar Fink MD Work Phone: Plan of Treatment Date Care Activity Detail Author Start: 01-03-2026 LIPID SCREEN LIPID SCREEN [facility] Start: 01-03-2026 PROSTATE CANCER SCREENING DISCUSSION PROSTATE CANCER SCREENING DISCUSSION [facility] Start: 03-05-2025 X-ray of lumbosacral spine L/S Spine Min 4 Views [facility] Start: 05-10-2024 Urine microalbumin profile DTAP,TDAP,TD (2 - Td or Tdap) [facility] Start: 01-04-2024 DIABETES SCREEN DIABETES SCREEN [facility] Start: 03-29-2022 Influenza vaccination INFLUENZA (Sea son Ended) [facility] Start: 01-03-2022 Adult depression screening assessment DEPRESSION SCREENING [facility] Start: 01-03-2022 COVID-19 VACCINE (1) COVID-19 VACCIN E (1) [facility] Comment on above: Postponed from 03/23 (Declined at this time) Start: 2015 SHINGRIX VACCINE (1 of 2) SHINGRIX VACCINE (1 of 2) [facility] Start: 2010 COLOGUARD (FIT-DNA) COLOGUARD (FIT-D NA) [facility] Start: 2010 Colonoscopy COLONOSCOPY [facility] Start: 2010 COLORECTAL CANCER SCREENING COLORECTAL CANCER SCREENING [facility] Start: [address] COLONOGRAPHY [facility] Start: 2010 FECAL OCCULT BLOOD FECAL OCCULT BLOO D [facility] Start: 2010 SIGMOIDOSCOPY SIGMOIDOSCOPY [facility] Immunizations Immunization Date Immunization Notes Care Provider Fa ciliangelina 05-10-2014 pneumococcal polysaccharide vaccine, 23 valent Bar Fink MD Work Phone: [facility] 05-10-2014 tetanus toxoid, redu zeus diphtheria toxoid, and acellular pertussis vaccine, adsorbed Bar Fink MD Work Phone: [facility] Payers Date Payer Category Payer Self-pay 2022 Unknown [id number] 2021 Unknown [employer] H[employer] OOS [id number] 2021-Present [phone] [address] [place] [address] HMO [id number] Unknown [id number] Unknown [id number] Unknown [id number] Unknown [id number] Unknown [id number] Social History Date Type Detail Facility Start: 10-24-2013 End: 08-16-2021 Tobacco smoking status ARIS Smokes tobacco daily [facility] Work Phone: History of tobacco use Cigarette Smoker C [facility] Work Phone: Start: 08-16-2021 Cigarettes smoked current (pack per day) - Reported 0.5 [facility] Start: 08-16-2021 Tobacco use and exposure Former smokeless tobacco user [facility] Work Phone: End: 12-13-2020 History of tobacco use User of smokeless tobacco [facility] Work Phone: Start: 08-16-2021 Alcohol intake 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) [facility] Start: 05-10-2014 History SDOH Alcohol Comment rare, occasional [facility] Start: 08-16-2021 Tobacco Comment Knows should q uit; some days less; some smoke at work [facility] Start: 1965 Sex Assigned At Not on file C [facility] Start: 07-17-2021 End: 08-16-2021 Exposure to SARS-CoV-2 (event) Not sure [facility] Start: 1965 Sex Assigned At Male [facility] Progress note 07-11-2023 Note Date & Type Note Facility 07-11-2023 Note HNO ID: [id number] Author: Emma Seymour APRN.PIPE AND TEST SUPERVISOR Service: ? Author Type: Nurse Specialist Type: Progress Notes Filed: 07/11/2023 7:39 AM Note Text: SUBJECTIVE: Hepatitis B Vaccine(1 of 3 - 3-dose series) Never done Colorectal Cancer Screening Never done Shingrix Vaccine(1 of 2) Never done Pneumococcal Vaccine(2 - PCV) due on 05/10/2015 Depression Assessment Never done HPI Torrey Ferguson is a 58 year old male.PMH significant for ACTIVE PROBLEM LIST Tobacco Abuse History of cervical fusion, [address] [facility] [address] [facility]. Subsequent titanium clips 2001. Congenital scoliosis lumbar to cervical. Imaging at [facility]. Presents for routine follow up visit. Notes he is in his usual state of health. He is active, works with concrete. Weight is stable. No new problems since last seen. Last seen by Bar Fink MD 08/16/2021. Seen by automatic casting machine operator , Dr Roberto. 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 Not treating blood pressure, has not previously. Smoking: tried bupropion but had adverse effect so stopped. Notes continues to smoke 1/2 pack daily HTN: Without report of headache, chest pain, palpitations, dyspnea, peripheral edema, orthopnea, fatigue, or PND. Last 3 Encounter BP Readings: Date: BP: 07/11/2023 136/86 08/16/2021 122/78 01/03/2021 130/88[trubp average[ Review of Systems Constitutional: Negative. Musculoskeletal: Positive for arthralgias and back pain. Objective BP 136/86 Pulse 60 Resp 16 Ht 167.6 cm (5' 6) Wt 56.2 kg (124 lb) BMI 20.01 kg/m? Physical Exam Vitals and nursing note reviewed. Constitutional: Appearance: Normal appearance. HENT: Head: Normocephalic and atraumatic. Eyes: Conjunctiva/sclera: Conjunctivae normal. Cardiovascular: Rate and Rhythm: Normal rate and regular rhythm. Heart sounds: Normal heart sounds. Pulmonary: Effort: Pulmonary effort is normal. Breath sounds: Normal breath sounds. Abdominal: General: Bowel sounds are normal. Palpations: Abdomen is soft. Musculoskeletal: Right lower leg: No edema. Left lower leg: No edema. Comments: S- shaped curvature of spine Skin: General: Skin is warm and dry. Neurological: General: No focal deficit present. Mental Status: He is alert. ALLERGIES Allergen Reactions Wellbutrin [Bupropi* Other: See Comments Made him feel weird amLODIPine (NORVASC) 2.5 mg tablet Take 1 tablet by mouth once daily. (Patient not taking: Reported on 08/16/2021) PAST MEDICAL HISTORY Diagnosis Date DDD (degenerative disc disease), cervical [facility] Nephrolithiasis 2014 Scoliosis, congenital Social History Tobacco Use Smoking status: Every Day Packs/day: 0.50 Years: 10.00 Additional pack years: 0.00 Total pack years: 5.00 Types: Cigarettes Smokeless tobacco: Former Quit date: 12/13/2020 Tobacco comments: Knows should quit; some days less; some smoke at work Vaping Use Vaping Use: Never used Substance Use Topics Alcohol use: No Comment: rare, occasional Drug use: No Component Latest Ref Rng AND Units 01/03/2021 Protein, Total 6.3 - 8.0 g/dL 7.1 Albumin 3.9 - 4.9 g/dL 4.5 Calcium 8.5 - 10.2 mg/dL 9.5 Bilirubin, Total 0.2 - 1.3 mg/dL 1.1 Alkaline Phosphatase 38 - 113 U/L 60 AST 14 - 40 U/L 26 Glucose 74 - 99 mg/dL 79 BUN 9 - 24 mg/dL 13 Creatinine 0.73 - 1.22 mg/dL 0.74 Sodium 136 - 144 mmol/L 138 Potassium 3.7 - 5.1 mmol/L 4.1 Chloride 97 - 105 mmol/L 101 CO2 22 - 30 mmol/L 27 Anion Gap 9 - 18 mmol/L 10 ALT 10 - 54 U/L 17 eGFR- >60 eGFR-All Other [place] . >60 Total Cholesterol, Nonfasting <200 mg/dL 172 Triglycerides, Nonfasting <150 mg/dL 67 HDL Cholesterol, Nonfasting >39 mg/dL 49 LDL Cholesterol, Nonfasting <100 mg/dL 110 (H) Non HDL Cholesterol, Nonfasting <130 mg/dL 123 VLDL Cholesterol, Nonfasting <30 mg/dL 13 Total Chol/HDL Ratio, Nonfasting <5.10 mg/dL 3.51 LDL/HDL Ratio, Nonfasting <2.54 mg/dL 2.24 HIV 12 Combo (Ag/Ab) Non Reactive Non Reactive HIV-1/2 AB Test Not Indicated HIV Interpretation Negative Hep C Antibody IA Negative Negative PSA Screening 0.00 - 2.59 ng/mL 1.31 ASSESSMENT/PLAN: 1. Routine medical exam - ICD9: V70.0, ICD10: Z00.00 (primary diagnosis) - Counseled on healthy diet and regular exercise - Follow up for annual exam in one year 2. Encounter for immunization - ICD9: V03.89, ICD10: Z23 deferred to later date - ZOSTER VACCINE, RECOMBINANT (SHINGRIX) - ZOSTER VACCINE, RECOMBINANT (SHINGRIX) - PNEUMOCOCCAL VACCINE (PREVNAR 20) - HEP B VACCINE, 3-DOSE, AGE 20+ YR (ENGERIX-B, RECOMBIVAX HB) - HEP B VACCINE, 3-DOSE, AGE 20+ YR (ENGERIX-B, RECOMBIVAX HB) - HEP B VACCINE, 3-DOSE, AGE 20+ YR (ENGERIX-B, RECOMBIVAX HB) 3. Screening for colon cancer - ICD9: V76.51, ICD10: Z12.11 Prefers colonoscopy will schedule at later date. - CONSULT TO GENERAL SURGERY - CONSULT TO GASTROENTEROLOGY 4. Skin cancer - ICD9: 173.90, ICD10: C44.90 (more content not included)... [facility] History of Present illness Narrative 08-16-2021 Bar Fink MD - 08/16/2021 11:53 AM EST Note Date & Type Note Facility 08-16-2021 History of Presen t illness Narrative This note was created using Flexion. Subjective Torrey Ferguson is a 56 year old male. Patient presents with: F/U 6 months SUBJECTIVE: Torrey Ferguson is a 56 year old year old gentleman here today for 6 month follow up appointment for review of medical conditions. Never took BP med. Took BP a couple times. Some days okay. Some times high as 130s. No symptoms of high BP. PAST MEDICAL HISTORY Diagnosis Date DDD (degenerative disc disease), cervical [facility] Nephrol[facility] 2014 Scoliosis, congenital Current Outpatient Medications Medication Sig amLODIPine (NORVASC) 2.5 mg tablet Take 1 tablet by mouth once daily. (Patient not taking: Reported on 08/16/2021 ) No current facility-administered medications for this visit. Review of Systems Objective BP 138/82 Pulse 78 Wt 58.1 kg (128 lb) BMI 20.05 kg/m Last 5 Encounter BP Readings: Date: BP: 08/16/2021 138/82 01/03/2021 130/88[trubp average[ 09/01/2019 126/72 01/30/2019 128/88 10/29/2014 120/80 08/16/21 1123 08/16/21 1203 BP: 138/82 122/78 Pulse: 78 Weight: 58.1 kg (128 lb) Physical Exam Vitals reviewed. Constitutional: Appearance: Normal appearance. Eyes: Conjunctiva/sclera: Conjunctivae normal. Cardiovascular: Rate and Rhythm: Normal rate and regular rhythm. Heart sounds: No murmur heard. Pulmonary: Effort: Pulmonary effort is normal. Breath sounds: Normal breath sounds. Abdominal: General: Abdomen is flat. Bowel sounds are normal. Palpations: Abdomen is soft. Skin: General: Skin is warm and dry. Neurological: General: No focal deficit present. Mental Status: He is alert and oriented to person, place, and time. Psychiatric: Mood and Affect: Mood normal. Behavior: Behavior normal. Thought Content: Thought content normal. Judgment: Judgment normal. Component Latest Ref Rng & Units 07/06/2004 07/06/2004 07/06/2004 01/03/2021 8:05 AM 8:05 AM 8:05 AM WBC, [place] 4.0 - 10.5 k/uL 4.8 RBC, [place] 4.7 - 6.1 m/uL 4.92 Hemoglobin, [place] 14.0 - 18.0 g/dL 16.4 Hematocrit, [place] 42.0 - 52.0 % 46.3 MCV, [place] 80 - 94 fL 94.0 MCH, [place] 27 - 31 pg 33.3 (A) MCHC, [place] 33 - 37 g/dL 35.4 RDW, [place] 11.5 - 14.5 % 11.2 (A) Platelet Cnt, [place] 130 - 400 k/uL 196 MPV, [place] 7.4 - 10.4 fL 8.3 Neut%, [place] 42.2 - 75.2 % 54.2 Lymp%, [place] 20.5 - 51.1 % 34.2 [place]%, [place] 1.7 - 9.3 % 7.9 Eos%, [place] 0.0 - 6.0 % 2.6 Baso%, [place] 0.0 - 2.0 % 1.1 Abs Neut, [place] 2.0 - 8.1 k/uL 2.6 Abs Lymp, [place] 1.0 - 5.5 k/uL 1.6 Abs [place], Gill 0.1 - 1.0 k/uL 0.4 Abs Eos, [place] 0.0 - 0.2 k/uL 0.1 Abs Baso, [place] 0.0 - 0.1 k/uL 0.1 Color YELLOW Yellow Clarity CLEAR Clear Glucose 74 - 99 mg/dL Negative 79 Bilirubin, Body Fluid NEG Negative Ketones/Acetone NEG mg/dL Trace (A) Specific [place], [place] 1.003 - 1.040 1.025 Blood (U), [place] NEG Negative pH, Urine 5.0 - 9.0 5.0 Protein, Body Fluid NEG mg/dL Negative Urobilinogen 0.0 - 1.0 EU/dL 0.2 Nitrite (U), [place] NEG Negative WBC NEG Negative Rare RBC, Urine, [place] /hpf Negative Bacteria /hpf Negative Epithelial, [place] /hpf Negative Casts, [place] /lpf Negative Mucous OCCAS /hpf Trace (A) Protein, Total 6.3 - 8.0 g/dL 7.1 Albumin 3.9 - 4.9 g/dL 4.5 Calcium 8.5 - 10.2 mg/dL 9.5 Bilirubin, Total 0.2 - 1.3 mg/dL 1.1 Alkaline Phosphatase 38 - 113 U/L 60 AST 14 - 40 U/L 26 BUN 9 - 24 mg/dL 13 Creatinine 0.73 - 1.22 mg/dL 0.74 Sodium 136 - 144 mmol/L 138 Potassium 3.7 - 5.1 mmol/L 4.1 Chloride 97 - 105 mmol/L 101 CO2 22 - 30 mmol/L 27 Anion Gap 9 - 18 mmol/L 10 ALT 10 - 54 U/L 17 eGFR- >60 eGFR-All Other [place]aces . >60 Total Cholesterol, Nonfasting <200 mg/dL 172 Triglycerides, Nonfasting <150 mg/dL 67 HDL Cholesterol, Nonfasting >39 mg/dL 49 LDL Cholesterol, Nonfasting <100 mg/dL 110 (H) Non HDL Cholesterol, Nonfasting <130 mg/dL 123 VLDL Cholesterol, Nonfasting <30 mg/dL 13 Total Chol/HDL Ratio, Nonfasting <5.10 mg/dL 3.51 LDL/HDL Ratio, Nonfasting <2.54 mg/dL 2.24 Triglyceride, [place] 30 - 200 mg/dL 48 Cholesterol, [place] 0 - 200 mg/dL 139 HDL Chol, [place] 40 - 60 mg/dL 43 VLDL Chol, [place] 5 - 40 mg/dL 10 LDL Chol, [place] 0 - 129 mg/dL 86 TC HDL Risk, [place] 4.5 - 5.0 3.2 (A) HIV 12 Combo (Ag/Ab) Non Reactive Non Reactive HIV-1/2 AB Test Not Indicated HIV Interpretation Negative Albumin, [place] 3.4 - 5.0 g/dL 4.1 Alk Phos, [place] 50 - 136 U/L 53 ALT, [place] 30 - 65 U/L 36 AST, [place] 15 - 37 U/L 17 BUN, [place] 7 - 18 mg/dL 13 Creatinine, [place] 0.8 - 1.3 mg/dL 0.8 Glucose, [place] 70 - 99 mg/dL 79 Sed Rate, [place] 0 - 10 mm/hr 1 T4, [place] 4.0 - 11.0 ug/dL 6.1 TSH, [place] 0.50 - 6.00 uIU/mL 1.23 CRP 0.0 - 2.0 mg/dL <0.3 Homocysteine, Serum 7.4 - 15.7 umol/L 8.8 Hep C Antibody IA Negative Negative PSA Screening 0.00 - 2.59 ng/mL 1.31 Assessment and Plan Encounter Diagnosis ICD-10-CM 1. Elevated blood-pressure reading without diagnosis of hypertension R03.0 2. Smoker F17.200 No need for BP med right now Work on quitting smoking. Labs were good. Keep active (construction) Above issues addressed with patient. Patient involved in shared decision making for management of medical issues. History and medications reviewed. Epic updated as needed Refills and/or prescriptions taken care of and meds adjusted as indicated after reviewed history, exam and labs. Health Maintenance reviewed. Updated record and/or ordered tests as recorded. Encouraged on efforts at healthy diet and regular exercise and adequate sleep. I spent a total of 21 minutes on the date of the service which included [id number]-[id number] patient care, completing clinical documentation, obtaining and/or reviewing separately obtained history, performing a medically appropriate examination and counseling and educating the patient/family/caregiver. Bar Fink MD documented in this encounter [facility] Evaluation note Note Date & Type Note Facility Evaluation note Diagnosis Elevated blood-pressure reading without diagnosis of hypertension- Primary Elevated blood pressure reading without diagnosis of hypertension Smoker Tobacco use disorder documented in this encounter [facility] Evaluation note Note Date & Type Note Facility Evaluation note No assessment information availa ble [facility] Work Phone: Reason for referral (narrative) Note Date & Type Note Facility Reason for referral (narrative) No reason for referral information available [facility] Work Phone: Summary Purpose Family History No Family History Records FoundNo Family History Records Found Advance Directives No Advanced Directives Records FoundNo Advanced Directives Records Found Chief Complaint and Reason for Visit Chief Complaint Admit Date LUMBAR SPINE March 05, 2025 12: 35pm room 2 March 05, 2025 1:1 1pm Additional Source Comments Source Comments (unrecognize d section and content) In the event this informatio n is protected by the Federal Confidentiality of Alcohol and Drug Abuse Patient Records regulations: The Federal rules restrict any use of the information to criminally investigate or prosecute any alcohol or drug abuse patient.[facility] Reason for Visit (unrecogniz ed section and content) Reason Comments F/U 6 months Specialty Diagnoses / Procedures Referred By Benji t Referred To Contact INTERNAL MEDICINE Diagnoses Annual Visit Procedures 4c Est Bar Fink MD [address] [place] [address] [facility] [address] [place] [address] Referral ID Status Reason Start Date Expiration Date Visits Re quested Visits Authorized [id number] Closed 08/16/2021 07/28/2022 1 1 Care Teams (unrecognized sec tion and content) Training And Development Coordinator Relationship Specialty Start Date End Date Bar Fink MD [address] [place] [address] PCP - General Internal Medicine 09/24/19 Team Status: Active Member Role/Relationship Status Dates Maria L Short NP-C Primary Care Provider Active Team Status: Inactive Member Role/Relationship Status Dates Maria L Short NP-C Primary Care Provider Active Start: January 26, 2025 End: January 26, 2025 Maria L Short NP-C Attending Provider Active St art: January 26, 2025 End: January 26, 2025 Maria L Short NP-C Referring Provider Active St art: January 26, 2025 End: January 26, 2025 Team Status: Active Member Role/Relationship Status Dates Maria L Short NP-C Primary Care Provider Active Start: March 05, 2025 Maria L Short NP-C Referring Provider Active St art: March 05, 2025 DARRELL Perera Attending Provider Active Start: March 05, 2025 Team Status: Inactive Member Role/Relationship Status Dates Maria L Short NP-C Primary Care Provider Active Start: March 05, 2025 End: March 05, 2025 Dr. Blaine Woodruff MD Attending Provider Active S tart: March 05, 2025 End: March 05, 2025 Team Status: Inactive Member Role/Relationship Status Dates Maria L Short NP-C Primary Care Provider Active Start: March 05, 2025 End: March 05, 2025 Maria L Short NP-[place] Referring Provider Active St art: March 05, 2025 End: March 05, 2025 DARRELL Perera Attending Provider Active Start: March 05, 2025 End: March 05, 2025 (unrecognized sect ion and content) No Status Records FoundNo Status Records Found INFORMATION SOURCE (unrecogn ized section and content) DATE CREATED AUTHOR 07/13/2023 [facility] DATE CREATED AUTHOR AUTHOR'S YON JASMINE 03/19/2025 [facility] Goals (unrecognized section and content) Goals may be documented in a n alternate sectionGoals may be documented in an alternate sectionGoals may be documented in an alternate section FOR RECORDS PERTAINING TO PATIENTS WHO ARE OR HAVE BEEN ENROLLED IN A CHEMICAL DEPENDENCY/SUBSTANCEABUSE PROGRAM, SOME INFORMATION MAY BE OMITTED. This clinical summary was aggregated from multiple sources. Caution should be exercised in using it in the provision of clinical care. This summary normalizes information from multiple sources, and as a consequence, information in this document may materially change the coding, format and clinical context of patient data. In addition, data may be omitted in some cases. CLINICAL DECISIONS SHOULD BE BASED ON THE PRIMARY CLINICAL RECORDS. [facility] [employer] provides no warranty or guarantee of the accuracy or completeness of information in this document.
--- NOTE | 2025-03-20 07:29 | MRI_ITS ---
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 There is no acute compressive deformity. Modic type 1 changes are seen at L1-2. No compression of the conus. No acute compressive deformity or visible subluxation. At L1-2, there is mild canal narrowing from concentric disc bulge with a yzaop-xeqlmhb-ywfq-left facet degeneration. Bulging disc produces mild inferior foraminal narrowing on the right side. At L2-3, disc space narrowing and dorsal disc osteophyte complex are present and there is overall moderate acquired spinal stenosis. Hypertrophic facet arthrosis is seen on both sides and this results in moderate right L2 foraminal stenosis. At L3-4 moderate circumferential spinal stenosis from yezup-[id number]-[id number]-left facet hypertrophy and broad-based annular bulging without left-sided foraminal narrowing. Moderate right L3 foraminal stenosis. L4-5 and L5-S1 are developmentally transitional without central or foraminal impingement. MRI/Spine Lumbar (Routine) IMPRESSION: 1. Lumbar scoliosis and a dysmorphic appearance of the lower lumbar vertebra. 2. 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 3. Moderate spinal stenosis at L2-3 and L3-4. 4. Moderate right L2 and moderate right L3 foraminal narrowing Reading [facility]
== END | disposition home or self-care (01) ==
LOC: MRI 07:12
PROVIDERS: PCP Nurse Practitioner Family; Referring Provider Nurse Practitioner Family; Visit Provider Nurse Practitioner Family
DX: M41.9 Scoliosis, unspecified (principal); G95.9 Disease of spinal cord, unspecified; M47.817 Spondylosis without myelopathy or radiculopathy, lumbosacral region
CPT/HCPCS: 70030; 72148